=== PATIENT | male | born 1995 | race Caucasian/White ===

== ENCOUNTER 2023-05-29 22:18 | Emergency (ER) | payer MEDICAID ==
[~2023-05-29] VITALS: Ht 167.6 cm; Wt 94.0 kg
[~2023-05-29 22:18] MED LIST: KEPPRA
[2023-05-29 22:40] VITALS: BP 160/108; PULSE 84; RESP 16; TEMP 98.9; O2SAT 99
== END 2023-05-30 02:13 | disposition home or self-care (01) ==
LOC: ER 22:18
DX: S01.91XA Laceration without foreign body of unspecified part of head, initial encounter (principal); I10 Essential (primary) hypertension; X58.XXXA Exposure to other specified factors, initial encounter; Y93.89 Activity, other specified; Y92.89 Other specified places as the place of occurrence of the external cause; Y99.8 Other external cause status
CPT/HCPCS: 12011; 99284